=== PATIENT | female | born 1980 | race Caucasian/White ===

== ENCOUNTER 2017-03-28 01:41 | Inpatient (IN) ==
[2017-03-28] MEDS ORDERED: SALINE FLUSH 10ml SYRINGE IVF PRN ×3 (02:03→10:01)
[2017-03-28] MEDS: NS 1,000 ML IV SCH ×4 (02:24→23:49)
--- NOTE | 2017-03-28 02:41 | Emergency Department Report ---
General Adult HPI - General Chief complaint: Headache Stated complaint: Anxiety Time Seen by Provider: 03/28/17 01:49 Source: patient Mode of arrival: ambulatory Limitations: no limitations - History of Present Illness HPI narrative: 36yo woman presents to the ER debbie 'feeling like poop'. Pt has been under significant stress at work due to a recent computer software change; had a WALKER start at noon. Pt felt horrible when she left work and was only able to drive a few blocks. She attributed her sx to missing her atenolol dose; taking the med has not helped. Pt has had nausea and vomiting along with F/C. No prior sx. Onset (ago): hour(s) Severity: severe Relieving factors: rest Associated symptoms: fever/chills, headaches, nausea/vomiting, shortness of breath Treatments prior to arrival: NSAID - Related Data Home Medications Medication Instructions Recorded Confirmed Atenolol [Tenormin] 25 mg PO BID 03/28/17 03/28/17 Metformin [Glucophage] 1 tab PO BIDWM 03/28/17 03/28/17 Allergies Allergy/AdvReac Type Severity Reaction Status Date / Time No Known Drug Allergies Allergy Unknown NONE Verified 03/28/17 03:21 Review of Systems All systems: reviewed and negative except as stated Cardiovascular: Reports: palpitations Respiratory: Reports: dyspnea Gastrointestinal: Reports: nausea, vomiting PFSH Patient Stated Medical History Diabetes Mellitus Type 2 Yes Depression Yes Other Reproductive Yes: c-sections Physical Exam - Limitations Limitations: no limitations - General General appearance: alert, anxious - Normal Exams: Head:: Normocephalic without trauma Eyes:: Pupils are PERRLA w/ EOMI, No scleral icterus, irritation, or foreign bodies noted ENMT:: No facial trauma, nasal exudates, pharyngeal erythema, or exudates are noted Neck:: Full range of motion, without adenopathy, JVD, bruits or thyromegaly Chest/Respirations:: Clear all hu, with good airflow, and symmetry bilaterally Abdomen:: Bowel sounds positive, soft, non-tender, non-distended, no hepatosplenomegaly, masses or bruits noted Lymphatic:: No lymphadenopathy, or lymphedema noted Musculoskeletal:: No tenderness, or deformity noted, good range of motion, all extremities Integumentary:: No rashes, hives, or bruising noted, hair and nails, without abnormality Neurological:: Patient is alert, and oriented, cranial nerves, motor/sensory/ cerebellar, exams w/o gross deficits, to observation Psychiatric:: Patient exhibits, appropriate attention, emotion and affect - Cardiovascular Cardiovascular exam: Present: normal rhythm, tachycardia, normal heart sounds. Absent: regular rate (Tachy), irregular rhythm Course Course Narrative: 0309: Noted that pts WBC elevated, 8% bands, and lactate is >4. 1G rocephin ordered to start; no obvious source of pts sx. - Consultations Consultation #1: Zain Telemed: Will admit pt for further eval/stabilization. Time: 04:28 Vital Signs Temperature 100 F 03/28/17 01:56 Pulse Rate 123 H 03/28/17 01:56 Respiratory Rate 20 03/28/17 01:56 Blood Pressure 86/54 03/28/17 01:56 Pulse Oximetry 92 03/28/17 01:56 Temperature 100 F 03/28/17 01:56 Pulse Rate 130 H 03/28/17 02:56 Respiratory Rate 20 03/28/17 01:56 Blood Pressure 77/45 03/28/17 02:56 Pulse Oximetry 92 03/28/17 01:56 Medical Decision Making - [facility] Narrative Medical decision making narrative: 36yo woman with tachycardia, hypotension, orthostasis, elevated WBC, elevated bands, and elevated lactate. Atbx started. F/u labs ordered. Will continue IVF to support pressures. - Differential Diagnosis HHS, DKA, Sepsis, Stress, Anxiety - Lab Data Result diagrams: 03/28/17 02:20 03/28/17 02:20 Lab Results 03/28/17 03/28/17 03/28/17 Range/Units 02:20 02:20 02:20 WBC 9.5 (4.5-11.0) T/MM3 RBC 5.14 (4.00-5.20) M/MM3 Hgb 15.7 (12-16) GM/DL Hct 47.2 H (36-46) % MCV 91.8 (80-100) UM3 MCH 30.5 (26-34) UUG MCHC 33.3 (31-37) GM/DL RDW Std Deviation 42.1 (36.9-50.2) FL Plt Count 243 (130-400) T/MM3 MPV 9.8 (9.4-12.4) UM3 Immature Gran % (Auto) Not performed Neut % (Auto) Not performed Lymph % (Auto) Not performed [place] % (Auto) Not performed Eos % (Auto) Not performed Baso % (Auto) Not performed Neut # Not performed Lymph # Not performed [place] # Not performed Baso # Not performed Abs Immat Gran (auto) Not performed Neutrophils % (Manual) 73.0 H (33-66) % Band Neutrophils % 8.0 H (0-6) % Lymphocytes % (Manual) 14.0 L (23-45) % Monocytes % (Manual) 4.0 (0-9.0) % Eosinophils % (Manual) 1.0 (0-4) % Neutrophils # (Manual) 6.9 (1.8-7.7) T/MM3 Band Neutrophils # 0.8 T/MM3 Lymphocytes # (Manual) 1.3 (1-4.8) T/MM3 Monocytes # (Manual) 0.4 (0-0.8) T/MM3 Eosinophils # (Manual) 0.1 (0-0.5) T/MM3 RBC Morph Comment Normal Turbidity 20 (0-20) Sodium 144 (134-144) MEQ/L Potassium 4.4 (3.6-5) MEQ/L Chloride 104 (98-107) MEQ/L Carbon Dioxide 22 (22-30) MEQ/L Anion Gap 18 H (5-15) MEQ/L BUN 21.0 H (7-17) MG/DL Creatinine 0.6 L (0.7-1.2) MG/DL GFR Calculation 112 BUN/Creatinine Ratio 35 H (6-26) RATIO Glucose 127 H (65-110) MG/DL Calculated Osmolality 282 H (261-280) MOSM/KG Calcium 9.1 (8.4-10.2) MG/DL Phosphorus 3.2 (2.5-4.5) MG/DL Magnesium 1.6 (1.6-2.3) MG/DL Total Bilirubin 0.80 (0.20-1.30) MG/DL Icterus Index 2 (0-7) AST 23 (14-36) U/L ALT 36 (9-52) U/L Alkaline Phosphatase 40 (38-126) U/L Total Protein 6.8 (6.3-8.2) G/DL Albumin 4.4 (3.5-5.0) G/DL Globulin 2.4 (2.4-3.6) G/DL Albumin/Globulin Ratio 1.8 (1.1-2.2) RATIO Plasma Lactate 4.1 H* (0.6-2.2) MMOL/L Serum , Qual Negative (Negative) Specimen Hemolysis 34 H (0-25) B-Hydroxybutyrate 0.30 (0-0.6) MMOL/L 03/28/17 Range/Units 02:20 WBC (4.5-11.0) T/MM3 RBC (4.00-5.20) M/MM3 Hgb (12-16) GM/DL Hct (36-46) % MCV (80-100) UM3 MCH (26-34) UUG MCHC (31-37) GM/DL RDW Std Deviation (36.9-50.2) FL Plt Count (130-400) T/MM3 MPV (9.4-12.4) UM3 Immature Gran % (Auto) Neut % (Auto) Lymph % (Auto) [place] % (Auto) Eos % (Auto) Baso % (Auto) Neut # Lymph # [place] # Baso # Abs Immat Gran (auto) Neutrophils % (Manual) (33-66) % Band Neutrophils % (0-6) % Lymphocytes % (Manual) (23-45) % Monocytes % (Manual) (0-9.0) % Eosinophils % (Manual) (0-4) % Neutrophils # (Manual) (1.8-7.7) T/MM3 Band Neutrophils # T/MM3 Lymphocytes # (Manual) (1-4.8) T/MM3 Monocytes # (Manual) (0-0.8) T/MM3 Eosinophils # (Manual) (0-0.5) T/MM3 RBC Morph Comment Turbidity (0-20) Sodium (134-144) MEQ/L Potassium (3.6-5) MEQ/L Chloride (98-107) MEQ/L Carbon Dioxide (22-30) MEQ/L Anion Gap (5-15) MEQ/L BUN (7-17) MG/DL Creatinine (0.7-1.2) MG/DL GFR Calculation BUN/Creatinine Ratio (6-26) RATIO Glucose (65-110) MG/DL Calculated Osmolality (261-280) MOSM/KG Calcium (8.4-10.2) MG/DL Phosphorus (2.5-4.5) MG/DL Magnesium (1.6-2.3) MG/DL Total Bilirubin (0.20-1.30) MG/DL Icterus Index (0-7) AST (14-36) U/L ALT (9-52) U/L Alkaline Phosphatase (38-126) U/L Total Protein (6.3-8.2) G/DL Albumin (3.5-5.0) G/DL Globulin (2.4-3.6) G/DL Albumin/Globulin Ratio (1.1-2.2) RATIO Plasma Lactate Cancelled (0.6-2.2) MMOL/L Serum , Qual (Negative) Specimen Hemolysis (0-25) B-Hydroxybutyrate (0-0.6) MMOL/L - Radiology Data CXR: No acute pathology. - EKG Data EKG #1 EKG attestation: Yes: I reviewed and interpreted this EKG. EKG shows normal: sinus rhythm Rate: tachycardia Critical Care Time Critical Care Time: Yes Total Critical Care Time: 45 Attestation: 45 min of critical care time assigned to this case due to its urgency, complexity of decision making, need for continued patient re-evaluation, or resources devoted to stabilizing the patient. Disposition Clinical Impression: Severe sepsis Disposition: 02 To [facility] [place] Acute Care Condition: Improved Prescriptions: No Action Atenolol [Tenormin] 25 mg PO BID Metformin [Glucophage] 1 tab PO BIDWM Referrals: Lindsay Mahmood DO [Family Provider] - Time of Disposition: 04:42 - Seen By: physician
[2017-03-28] MEDS ORDERED: CEFTRIAXONE 1 G in NS 100 ML IV ONE (03:09)
[2017-03-28] MEDS ORDERED: NS 1,000 ML IV ONE ×2 (03:37→04:24)
--- NOTE | 2017-03-28 05:55 | History & Physical Report ---
History of Present Illness Date: Chief complaint: Not feeling well HPI: HPI: This is a 36-year-old female with a history of type II diabetes mellitus, who presents to the ER today with chief complaint of not feeling well starting today. She is an employee of the hospital, and has been working on assisting with the EMR turnover. She has been under a lot of stress. She had not been feeling well the last few hours of the day yesterday, with nausea, light headedness, and palpitations. She made it a few blocks towards her house, and then her had to pick her up. She reported some fevers and chills as well. She took her atenolol, which did not help her feelings of illness or palpitations. After a few unsuccessful hours at home to try to feel better, EMS was called. Upon arrival to the ER, she was noted to be slightly hypotensive with reported blood pressures of the 90s/50s. She was noted to be tachycardic. So far this morning, she has received 2 L of IV fluids, and 1 g of Rocephin. Blood cultures have been obtained. Infectious workup is incomplete in the ER, as an urinalysis has apparently been obtained but yet to be resulted. She has not reported specific dysuria. Otherwise, remainder of infectious workup is negative this far. A venous lactate was 4.1 on initial check. She is now being placed in the hospital for further evaluation of suspected sepsis. Please note this patient encounter was performed via the use of telemedicine technology Review of Systems All systems: reviewed and no additional remarkable complaints except as stated ( as mentioned in HPI) [facility] Patient Stated Medical History Diabetes Mellitus Type 2 Yes Depression Yes Other Reproductive Yes: c-sections Family History: Non contributory Smoking status: Never smoker Medications Home Medications Medication Instructions Recorded Confirmed Type Atenolol [Tenormin] 25 mg PO BID 03/28/17 03/28/17 History Insulin Aspart [Novolog] 25 units SQ WM 03/28/17 03/28/17 History Insulin Degludec [Tresiba 50 unit SQ BIDBS 03/28/17 03/28/17 History Flextouch U-200] LORazepam [Ativan] 0.5 mg PO DAILY PRN 03/28/17 03/28/17 History Levothyroxine Tab [Synthroid] 12.5 mg OP DAILY 03/28/17 03/28/17 History Metformin [Glucophage] 1 tab PO BIDWM 03/28/17 03/28/17 History Trazodone [Desyrel] 50 mg PO HS 03/28/17 03/28/17 History Allergies Allergy/AdvReac Type Severity Reaction Status Date / Time No Known Drug Allergies Allergy Unknown NONE Verified 03/28/17 03:21 Exam Vital Signs: Temp Pulse Resp BP Pulse Ox 100 F 130 H 30 H 77/45 96 03/28/17 01:56 03/28/17 02:56 03/28/17 02:15 03/28/17 02:56 03/28/17 02:15 Height: 1.73 m Weight: 107.3 kg - Constitutional Present: no acute distress, morbidly obese - Routine HEENT Exam Head: Present: normocephalic, atraumatic - Routine Neck Exam Present: supple. Absent: JVD - Routine Respiratory Exam Present: CTA bilaterally. Absent: accessory muscle use, rhonchi, wheezes - Routine Cardiovascular Exam Present: RRR, S1, S2 - Routine Extremities Exam Absent: edema - Routine Skin Exam Absent: rash - Routine Neurological Exam Present: alert, oriented X3. Absent: altered mental status Results - Labs CBC & Chem 7: 03/28/17 02:20 03/28/17 02:20 Labs: Short CBC 03/28/17 Range/Units 02:20 WBC 9.5 (4.5-11.0) T/MM3 Hgb 15.7 (12-16) GM/DL Hct 47.2 H (36-46) % Plt Count 243 (130-400) T/MM3 BMP 03/28/17 02:20 Sodium 144 Potassium 4.4 Chloride 104 Carbon Dioxide 22 BUN 21.0 H Creatinine 0.6 L Glucose 127 H Calcium 9.1 Liver Function 03/28/17 Range/Units 02:20 Total Bilirubin 0.80 (0.20-1.30) MG/DL AST 23 (14-36) U/L ALT 36 (9-52) U/L Alkaline Phosphatase 40 (38-126) U/L Albumin 4.4 (3.5-5.0) G/DL Urine 03/28/17 Range/Units 04:37 Urine Color Yellow (YELLOW) Urine Clarity Clear Urine pH 5.5 (5.0-8.0) Ur Specific [place] 1.020 (1.015-1.025) Urine Protein Negative (NEGATIVE) Urine Glucose (UA) 3+ A (NEGATIVE) Assessment and Plan Assessment and Plan: Assessment: 1. Severe sepsis with as of yet presently uncertain source, suspected urinary- present on admission 2. Clinical dehydration 3. Type II diabetes mellitus 4. Hypertension by history 5. Depression Plan: Patient will be admitted to full inpatient medical status. Continue crystalloid IV fluids. Need to monitor culture data. Need to follow up on urinalysis results when available. At this present time, this seems to be the most likely source of infection. Continue IV Rocephin for antibiotic coverage at present time. Will follow up a venous lactate level 4 hours after the initial check. Need to monitor perfusion, urine output. Will hold antihypertensive agents at this time. Hold metformin. Sliding-scale insulin protocol will be followed. Follow up labs again at noon. DVT prophylaxis ordered will be Lovenox. Sepsis Assessment - Evaluation Confirmed Suspected Infection: No SIRS Criteria: pulse > or equal to 90 beats/minute Severe Sepsis: lactate > or equal to 2.0 mg/dl - Focused Exam Vital Signs Temp Pulse Resp BP Pulse Ox 03/28/17 02:56 130 H 77/45 03/28/17 02:46 130 H 88/50 03/28/17 02:45 118 H 99/53 03/28/17 02:39 125 H 03/28/17 02:15 124 H 30 H 110/58 96 03/28/17 02:00 119 H 13 110/62 94 03/28/17 01:56 100 F 123 H 20 86/54 92 Hospital Course Summary Disclaimer: The visit summary below is not to be considered part of the above Progress Note.
[2017-03-28] MEDS ORDERED: TRESIBA U PO SCH (10:01)
[2017-03-28] MEDS ORDERED: DEXTROSE 50% SYRINGE 50ml (1 AMP) IVP PRN (10:01)
[2017-03-28] MEDS ORDERED: INSULIN ASPART 100unit/ml INJECTION SQ PRN (10:01)
[2017-03-28] MEDS ORDERED: ONDANSETRON 4 MG/2 ML INJECTION IVP PRN (10:01)
[2017-03-28] MEDS ORDERED: LORazepam 0.5 MG TABLET PO PRN (10:01)
[2017-03-28] MEDS ORDERED: GLUCOSE ORAL GEL 40% 37.5gm PO PRN (10:01)
[2017-03-28] MEDS: ENOXAPARIN 40 MG/0.4 ML INJECTION SQ SCH (11:29)
--- NOTE | 2017-03-28 13:06 | XRay Report ---
INDICATION: Tachycardia PROCEDURE: CHEST 2-VIEWS UPRIGHT (PA & LAT) Encounter: Initial COMPARISON: None FINDINGS: The lungs are clear without evidence of focal abnormal airspace opacity. There is no pleural effusion or pneumothorax. The heart size, mediastinal contours and pulmonary vascularity are within normal limits. There is no significant skeletal abnormality. IMPRESSION: No acute cardiopulmonary disease. .
[2017-03-28] MEDS: ACETAMINOPHEN 325 MG TABLET PO PRN ×2 (15:01→21:40)
[2017-03-28] MEDS: TRESIBA U PO SCH (21:03)
[2017-03-28] MEDS: TRAZODONE 50 MG TABLET PO SCH (21:04)
[2017-03-29] MEDS: NS 1,000 ML IV SCH ×5 (03:05→21:10)
[2017-03-29] MEDS: CEFTRIAXONE 1 G in NS 100 ML IV SCH (03:27)
[2017-03-29] MEDS: ENOXAPARIN 40 MG/0.4 ML INJECTION SQ SCH (08:58)
[2017-03-29] MEDS: TRESIBA U PO SCH ×2 (08:59→22:06)
[2017-03-29] MEDS ORDERED: ACETAMINOPHEN 325 MG TABLET PO PRN (09:08)
--- NOTE | 2017-03-29 14:34 | Progress Note ---
Subjective: Pt states she is feeling better today. No cough, no more chills or fevers. No abdominal pain. Blood cultures remain negative. Objective Vital signs: Temp Pulse Resp BP Pulse Ox 98.3 F 91 16 117/62 97 03/29/17 11:50 03/29/17 11:50 03/29/17 11:50 03/29/17 11:50 03/29/17 11:50 Rhythm: Normal Sinus Rhythm Weight: 108.8 kg - Constitutional Present: no acute distress, well nourished - Routine HEENT Exam Head: Present: normocephalic, atraumatic Eye: Present: EOMI, PERRL ENT: Present: mucous membranes moist - Routine Respiratory Exam Present: CTA bilaterally - Routine Cardiovascular Exam Present: RRR, no murmur - Routine Abdominal Exam Present: soft, normoactive bowel sounds, non distended, non tender - Routine Extremities Exam Absent: cyanosis, clubbing, edema - Routine Musculoskeletal Exam Musculoskeletal: no clubbing or cyanosis - Routine Skin Exam Present: intact - Routine Neurological Exam Present: alert, oriented X3 - Routine Psychiatric Exam Present: normal affect, cooperative, good insight Results - Labs CBC & Chem 7: 03/29/17 09:34 03/29/17 09:34 Labs: Short CBC 03/29/17 Range/Units 09:34 WBC 2.9 L D (4.5-11.0) T/MM3 Hgb 12.1 (12-16) GM/DL Hct 37.3 (36-46) % Plt Count 177 (130-400) T/MM3 BMP 03/29/17 09:34 Sodium 144 Potassium 3.7 Chloride 109 H Carbon Dioxide 26 BUN 5.0 L D Creatinine 0.6 L Glucose 140 H Calcium 7.8 L Liver Function 03/29/17 Range/Units 09:34 Total Bilirubin 0.30 (0.20-1.30) MG/DL AST 39 H (14-36) U/L ALT 52 D (9-52) U/L Alkaline Phosphatase 37 L (38-126) U/L Albumin 3.2 L (3.5-5.0) G/DL Assessment and Plan Assessment and Plan: Assessment: This is a 36 YO female that came to the ED overnight on 03/28 - and was found to be hypotensive, tachycardic and gave H.O Chills and fevers and was thought to have sepsis. She was started on IVF and Rocephin. On admission to the Medical unit she denied any history of dysuria, blood in her urine, back pain; pt was not currently having her period. Denies any cough, no diarrhea, no vaginal discharge. 1. Severe sepsis, per admission H&P ([employer]) with unkown source - Pt is feeling better today - WBC fell down and pt is now leukopenic - with no neutropenia; monocytes are up , suggestive of viral infection. - Blood cultures so far negative. - UA was clear no WBC 2. Clinical dehydration on admission - now improved with normal BP. BUN/Cr = 5/ 0.6 3. Type II diabetes mellitus - Continue present Rx. 4. Hypertension by history - Stable 5. Depression - Stable. Prevention DVT - With lovenox. Sepsis Assessment - Evaluation Sepsis screening result: No Definite Risk SIRS Criteria: pulse > or equal to 90 beats/minute Severe Sepsis: lactate > or equal to 2.0 mg/dl - Focused Exam Vital Signs Temp Pulse Resp BP Pulse Ox 03/29/17 11:50 98.3 F 91 16 117/62 97 03/29/17 08:00 76 03/29/17 07:22 97.9 F 84 18 137/71 96 03/29/17 04:00 97.0 F 88 18 121/75 95 Respiratory exam: Present: CTA bilaterally. Absent: accessory muscle use, rhonchi, wheezes Cardiovascular exam: Present: RRR, S1, S2 Hospital Course Summary Disclaimer: The visit summary below is not to be considered part of the above Progress Note.
[2017-03-29] MEDS: TRAZODONE 50 MG TABLET PO SCH ×2 (22:05→22:10)
[2017-03-30] MEDS: CEFTRIAXONE 1 G in NS 100 ML IV SCH (03:02)
[2017-03-30] MEDS: NS 1,000 ML IV SCH ×2 (04:22→11:15)
[2017-03-30] MEDS: TRESIBA U PO SCH (08:13)
[2017-03-30] MEDS: ENOXAPARIN 40 MG/0.4 ML INJECTION SQ SCH (08:13)
--- NOTE | 2017-03-30 10:42 | Progress Note ---
Subjective: Ali feels much better overall. However, she didn't sleep well last, in part b/c of diarrhea. She's had 2-3 episodes of yellow, very watery stools. She has cramping just before it then significant urgency. She denies any blood. She has not had any n/v and ate a good breakfast. She developed a mild dry cough , but denies sinus problems. No weakness/dizziness or gait instability. <Niyah Hollis 03/30/17 10:57> Objective Vital signs: Temp Pulse Resp BP Pulse Ox 97.9 F 59 L 17 132/73 95 03/30/17 07:51 03/30/17 08:00 03/30/17 07:51 03/30/17 07:51 03/30/17 07:51 <Raheem Roach 03/30/17 12:10> Temp Pulse Resp BP Pulse Ox 97.9 F 59 L 17 132/73 95 03/30/17 07:51 03/30/17 08:00 03/30/17 07:51 03/30/17 07:51 03/30/17 07:51 <Niyah Hollis 03/30/17 10:57> Rhythm: Normal Sinus Rhythm <Niyah Hollis 03/30/17 10:57> Weight: 110.1 kg <Niyah Hollis 03/30/17 10:57> - Constitutional Present: no acute distress, well nourished, well developed <Niyah Hollis 03/30/17 10:57> - Routine HEENT Exam Head: Present: normocephalic <Niyah Hollis 03/30/17 10:57> ENT: Present: mucous membranes moist <Niyah Hollis 03/30/17 10:57> - Routine Respiratory Exam Present: CTA bilaterally <Niyah Hollis 03/30/17 10:57> - Routine Cardiovascular Exam Present: S1, S2 <Niyah Hollis 03/30/17 10:57> - Routine Abdominal Exam Present: soft, normoactive bowel sounds <Niyah Hollis 03/30/17 10:57> - Routine Extremities Exam Present: normal capillary refill. Absent: clubbing, edema <BunnyLeobardoNiyah D 03/30/17 10:57> - Routine Musculoskeletal Exam Musculoskeletal: no clubbing or cyanosis <BunnyNiyah D 03/30/17 10:57> - Routine Skin Exam Present: intact, dry, warm <BunnyLeobardo schultzkaylynn Trevizo 03/30/17 10:57> - Routine Neurological Exam Present: alert, oriented X3 <Niyah Hollis 03/30/17 10:57> - Routine Psychiatric Exam Present: normal affect, normal thought process <BunnyNiyah D 03/30/17 10: 57> Results - Labs CBC & Chem 7: 03/30/17 04:07 03/30/17 04:07 <Raheem Roach 03/30/17 12:10> Labs: Short CBC 03/30/17 Range/Units 04:07 WBC 3.5 L (4.5-11.0) T/MM3 Hgb 11.9 L (12-16) GM/DL Hct 37.0 (36-46) % Plt Count 182 (130-400) T/MM3 [facility] 03/30/17 04:07 Sodium 143 Potassium 3.9 Chloride 112 H Carbon Dioxide 21 L BUN 5.0 L Creatinine 0.5 L Glucose 104 Calcium 8.3 L <Raheem Roach 03/30/17 12:10> Short CBC 03/30/17 Range/Units 04:07 WBC 3.5 L (4.5-11.0) T/MM3 Hgb 11.9 L (12-16) GM/DL Hct 37.0 (36-46) % Plt Count 182 (130-400) T/MM3 [facility] 03/30/17 04:07 Sodium 143 Potassium 3.9 Chloride 112 H Carbon Dioxide 21 L BUN 5.0 L Creatinine 0.5 L Glucose 104 Calcium 8.3 L <Niyah Hollis 03/30/17 10:57> Assessment and Plan (1) Severe sepsis Current visit: Yes Status: Resolved (2) Leukopenia Current visit: Yes Status: Acute (3) Type 2 diabetes mellitus Current visit: Yes Status: Chronic (4) HTN (hypertension) Current visit: Yes Status: Chronic (5) Depression Current visit: Yes Status: Chronic (6) Diarrhea Current visit: Yes Status: Acute <Raheem Roach Joseline - 03/30/17 12:10> (1) Leukopenia Current visit: Yes Status: Acute (2) Severe sepsis Current visit: Yes Status: Resolved (3) Type 2 diabetes mellitus Current visit: Yes Status: Chronic (4) HTN (hypertension) Current visit: Yes Status: Chronic (5) Depression Current visit: Yes Status: Chronic (6) Diarrhea Current visit: Yes Status: Acute <Niyah Hollis Joseline 03/30/17 10:38> DVT Prophylaxis: Lovenox <Niyah Hollis Joseline 03/30/17 10:57> Resuscitation Status: Full Code <Niyah Hollis Joseline 03/30/17 10:57> Assessment and Plan: Have independently interviewed and examined pt. Chart reviewed. Case discussed with my EXPERIMENTAL TECHNICIAN. Care plan developed with my supervision; agree with above. Doing well today. No f/c. Breathing well. Oral drive improving-not nausea, but appetite with slight decreased. No mouth pain. Had loose stool. No ab pain or bloating. Urinating well. Not dizzy or unsteady when up; ambulating well. Strength much improved, but not back to 100%. Lungs: clear bilaterally CV: regular AB: soft nt/nd +bs EXT: trace edema MSE: awake alert appropriate. Thoughts linear. Converses well Plan: Will d/c to home. Do not feel further antibiotics needed. Encourage good oral intake of liquids, increase foods as able. Encourage yogurt intake to help with bowel function. Watch for thrush secondary to antibiotic exposure. Will have pt off work until 04/02 so she can continue to recover her strength. F/C with PCP in 1 week. See orders for details. Time spent with patient care and discharge greater than 30 minutes. <Raheem Roach Joseline - 03/30/17 12:09> Severe sepsis - resolved (with lactate of 4.1, she would actually meet criteria for septic shock), though source is felt to be likely viral in nature. Dehydration with DM2 may also have played a role in elevated lactate. -BC neg at 48 hrs -UA neg -CXR neg -Diarrhea started today - check GI panel. Suspect abx-related diarrhea. -Leukopenia-improved but persists -Hypotension and tachycardia have resolved - DC tele. DM2 -BGM under reasonably good control even while holding Metformin -cont. Tresiba Hypothyroid -check TSH, especially given sx on admit. Poss discharge soon. D/W Dr. Raoch. <Niyah Hollis 03/30/17 10:57> Sepsis Assessment - Evaluation Sepsis screening result: No Definite Risk <Niyah Hollis 03/30/17 10:57> SIRS Criteria: pulse > or equal to 90 beats/minute <Niyah Hollis 03/30/17 10:57> Severe Sepsis: lactate > or equal to 2.0 mg/dl <Niyah Hollis 03/30/17 10: 57> - Focused Exam Vital Signs Temp Pulse Resp BP Pulse Ox 03/30/17 08:00 59 L 03/30/17 07:51 97.9 F 67 17 132/73 95 03/30/17 00:00 98.1 F 74 20 124/65 94 <Raheem Roach 03/30/17 12:10> Vital Signs Temp Pulse Resp BP Pulse Ox 03/30/17 08:00 59 L 03/30/17 07:51 97.9 F 67 17 132/73 95 03/30/17 00:00 98.1 F 74 20 124/65 94 <Niyah Hollis 03/30/17 10:57> Respiratory exam: Present: CTA bilaterally. Absent: accessory muscle use, rhonchi, wheezes <Niyah Hollis 03/30/17 10:57> Cardiovascular exam: Present: RRR, S1, S2 <Niyah Hollis 03/30/17 10:57> Hospital Course Summary Disclaimer: The visit summary below is not to be considered part of the above Progress Note. <Raheem Roach 03/30/17 12:10> The visit summary below is not to be considered part of the above Progress Note. <Niyah Hollis 03/30/17 10:57> Hospital Course: 03/30/17 10:55 Severe sepsis - resolved (with lactate of 4.1, she would actually meet criteria for septic shock), though source is felt to be likely viral in nature. Dehydration with DM2 may also have played a role in elevated lactate. -BC neg at 48 hrs -UA neg -CXR neg -Diarrhea started today - check GI panel. Suspect abx-related diarrhea. -Leukopenia-improved but persists -Hypotension and tachycardia have resolved - DC tele. DM2 -BGM under reasonably good control even while holding Metformin -cont. Tresiba Hypothyroid -check TSH, especially given sx on admit <Niyah Hollis - 03/30/17 10:57>
--- NOTE | 2017-03-30 12:54 | Discharge Summary ---
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 treater helper use Qualified Code(s): E11.9 - Type 2 diabetes mellitus without complications; Z79.4 - long term care phlebotomist (current) use of insulin Status: Chronic (5) HTN (hypertension) Qualifiers: Hypertension type: essential hypertension Qualified Code(s): I10 - Essential (primary) hypertension Status: Chronic - Laboratory Labs: 03/30/17 04:07 03/30/17 04:07 - Microbiology Blood cultures negative after 2 days - Radiology Radiology: CXR 03/28/17 - no acute cardiopulmonary disease History of Present Illness HPI: HPI: This is a 36-year-old female with a history of type II diabetes mellitus, who presents to the ER today with chief complaint of not feeling well starting today. She is an employee of the hospital, and has been working on assisting with the EMR turnover. She has been under a lot of stress. She had not been feeling well the last few hours of the day yesterday, with nausea, light headedness, and palpitations. She made it a few blocks towards her house, and then her had to pick her up. She reported some fevers and chills as well. She took her atenolol, which did not help her feelings of illness or palpitations. After a few unsuccessful hours at home to try to feel better, EMS was called. Upon arrival to the ER, she was noted to be slightly hypotensive with reported blood pressures of the 90s/50s. She was noted to be tachycardic. So far this morning, she has received 2 L of IV fluids, and 1 g of Rocephin. Blood cultures have been obtained. Infectious workup is incomplete in the ER, as an urinalysis has apparently been obtained but yet to be resulted. She has not reported specific dysuria. Otherwise, remainder of infectious workup is negative this far. A venous lactate was 4.1 on initial check. She is now being placed in the hospital for further evaluation of suspected sepsis. Hospital Course Hospital course: Mrs. De La Rosa was [place] [facility] [place] for suspicion of severe sepsis/ septic shock d/t lactate of 4.1, tachycardia, hypotension. She was given IVF and started on Rocephin for presumed UTI. Lactate trended down and her vitals stabilized by 03/29/17. No obvious source of infection was identified; it's possible that a viral etiology is to blame. CBC showed leukopenia of 2.9 on , but this began to improve on 03/30/17 (3.5). Her chemistry panel remained stable. She developed diarrhea late in the evening of 03/29/17, but improved by 03/30/17 and by the time of discharge had not been able to provide a specimen for testing. TSH was assessed and found to be subtly low at 0.46 (range is 0.47-4.68 ). She reported feeling much better and was able to eat well, and felt stable on her feet. She was able to be discharged home in stable condition on 03/30/17. Given lack of clinical support for bacterial infection, antibiotics were not continued at time of discharge. She should rest and ensure good hydration at home. Continue routine insulin regimen. F/U with PCP in 1 week. This is a general summation of her hospital course. For more details, please refer to the complete medical record. Time spent in DC: 35 min. Discharge Plan - Med Rec/Dispo Referrals/Follow Up: Lindsay Mahmood DO [Family Provider] - [place] Instructions: Sepsis (GEN) Additional Instructions: Follow up with Dr. Mahmood in 1-2 weeks Prescriptions: New Acetaminophen [Tylenol] 650 mg PO Q4H PRN PRN Reason: Discomfort Lactobacillus [Culturelle] 1 cap PO TIDWM #30 capsule Continue Atenolol [Tenormin] 25 mg PO BID Metformin [Glucophage] 1 tab PO BIDWM LORazepam [Ativan] 0.5 mg PO DAILY PRN PRN Reason: Anxiety Insulin Degludec [Tresiba Flextouch U-200] 50 unit SQ BIDBS Insulin Aspart [Novolog] 25 units SQ WM Trazodone [Desyrel] 50 mg PO HS Levothyroxine Tab [Synthroid] 12.5 mcg OP DAILY - Disposition 01 Discharged Home, Self-Care
--- NOTE | 2017-03-30 13:22 | Work/School Release ---
Work/School Release - Date Date: 03/30/17 - Work Release Remain off work/school for:: May return to work on March; recovering from illness requiring hospitalization. May return to work on:: April 02, 2017
== END 2017-03-30 14:00 | disposition home or self-care (01) | DRG 872 ==
LOC: ED 01:41 → MED 06:31
PROVIDERS: ADMIT Hospitalist; ATTEND Hospitalist